=== PATIENT | female | born 2000 | race Caucasian/White ===

== ENCOUNTER 2020-03-02 13:05 | Outpatient (CLI) | payer OTHER ==
[2020-03-02] MEDS ORDERED: GADOBUTROL 7.5 MMOL/7.5 ML VIAL ONE (13:32)
[2020-03-02] MEDS ORDERED: BUFFERED LIDOCAINE 10 ML SYRINGE ONE (13:32)
[2020-03-02] MEDS: GADOBUTROL 7.5 MMOL/7.5 ML VIAL IVP ONE (14:20)
[2020-03-02] MEDS: iohexoL-240 10 ML VIAL IVP ONE (14:21)
[2020-03-02] MEDS: BUFFERED LIDOCAINE 10 ML SYRINGE IU ONE (14:21)
--- NOTE | 2020-03-02 15:25 | XRAY Report ---
PROCEDURE: Arthrogram Needle Placement INDICATIONS: Right shoulder pain TECHNIQUE: Informed consent was obtained. The right anterior shoulder was prepped and draped in usual sterile fa shion. Local anesthesia was achieved with 1% lidocaine. Subsequently, access was achieved to the righ t glenohumeral joint joint using a 3.5 inch 20-gauge spinal needle. A mixture normal saline, iodinate d contrast, and gadolinium this was instilled into the joint under direct fluoroscopic guidance. Spot films were then obtained, unremarkable. FINDINGS: Initial fluoroscopy demonstrated successful access to the right glenohumeral joint. Subsequent fluoro scopic and overhead films demonstrate intra-articular contrast dispersion. IMPRESSION: Technically successful right glenohumeral joint arthrogram for MRI. Reviewed by: Goyo Zee MD on 03/02/2020 3:23 PM PDT Approved by: Goyo Zee MD on 03/02/2020 3:23 PM PDT Station ID: [id number]
--- NOTE | 2020-03-02 16:07 | MRI Report ---
PROCEDURE: Arthrogram Shoulder RT INDICATIONS: RT SHLDR PAIN CONTRAST: 12 mL of dilute intra-articular Gadolinium contrast solution TECHNIQUE: After the administration of 12 mL of dilute intra-articular Gadolinium contrast, oblique coronal T1 a nd T2 spin echo with fat saturation, oblique sagittal T1 spin echo with and without fat saturation, o blique sagittal T2 fast spin echo with fat saturation, axial T1 spin echo with fat saturation through the shoulder. COMPARISON: Fluoroscopic images from arthrogram injection performed earlier the same day. FINDINGS: Image quality: Excellent. Rotator cuff: There is mild supraspinatus tendinosis. Infraspinatus and teres minor tendons are inta ct. The subscapularis tendon is grossly intact. There is no significant rotator cuff muscle atrophy. Bones and bursae: Increased signal intensity is seen within the medial humeral head and the glenoid that is suspicious for osteitis. There is full-thickness cartilage loss in the glenohumeral joint. No significant acromioclavicular joint degenerative changes are seen. Capsule and soft tissues: The labrum appears diminutive without a focal tear. There is mild tendinos is of the intra-articular portion of the biceps long head tendon. There is diffuse severe synovial hy pertrophy throughout the glenohumeral joint. Axillary lymph nodes are significantly increased in numb er and measure up to 11 mm in short axis diameter. IMPRESSION: 1. Marked synovial hypertrophy is seen in the glenohumeral joint with edema or osteitis in the adjac ent portions of the humeral head and glenoid. There is full-thickness cartilage loss in the glenohume ral joint. Axillary lymph nodes are significantly increased in size and number. Findings are suspicio us for an inflammatory arthritis such as rheumatoid arthritis versus a chronic indolent infection. Cl inical correlation is recommended. If there is any suspicion for an acute bacterial infection, urgent joint aspiration should be performed. 2. Mild supraspinatus tendinosis. 3. Mild tendinosis of the biceps long head tendon. Reviewed by: Beltran Lane MD on 03/02/2020 4:06 PM PDT Approved by: Beltran Lane MD on 03/02/2020 4:06 PM PDT Station ID: [id number]
--- NOTE | 2020-03-02 16:13 | MRI Report ---
PROCEDURE: Elbow RT W/O INDICATIONS: PAIN IN RT ELBOW TECHNIQUE: Noncontrast coronal proton density fast spin echo and T2 fast spin echo with fat saturation, axial an d sagittal T1 spin echo and T2 fast spin echo with fat saturation through the elbow. COMPARISON: None. FINDINGS: Image quality: Excellent. Lateral structures: The lateral ulnar collateral ligament and radial collateral ligament both appear intact. The overlying common extensor tendon demonstrate mild tendinosis. Medial structures: The ulnar collateral ligament appears intact. The overlying common flexor tendon appears normal. The ulnar nerve appears normal in size and signal within the cubital tunnel. Anterior structures: The biceps and brachialis tendons both appear intact as they insert onto the pr oximal radius and ulna, respectively. No bicipitoradial bursal fluid. The median and radial neurova scular bundles appear normal; no focal muscle atrophy to suggest nerve impingement. Posterior structures: The triceps tendon appears intact. No olecranon bursal fluid. Bone and cartilage: Edema or osteitis is seen in the distal humerus and the proximal ulna and radius adjacent to the elbow joint. There is high-grade and likely full-thickness cartilage loss in the radi ocapitellar and ulnotrochlear joints. A large joint effusion is seen with marked synovial hypertrophy . IMPRESSION: 1. Marked synovial hypertrophy is seen throughout the elbow with edema/osteitis of the adjacent osse ous structures. There is high-grade and likely full-thickness cartilage loss in the elbow joint. A mi ldly enlarged epitrochlear lymph node is seen. Findings are suspicious for an inflammatory arthritis such as rheumatoid arthritis. Chronic indolent infection such as tuberculosis or coccidiomycosis is l ess likely in the setting of multiple joint involvement. Correlation with clinical findings and serol ogies is recommended. 2. Mild common extensor tendinosis. Reviewed by: Beltran Lane MD on 03/02/2020 4:11 PM PDT Approved by: Beltran Lane MD on 03/02/2020 4:11 PM PDT Station ID: [id number]
== END 2020-03-02 13:06 | disposition home or self-care (01) ==
LOC: DI 13:05
DX: M67.211 Synovial hypertrophy, not elsewhere classified, right shoulder (principal); M94.211 Chondromalacia, right shoulder; R59.0 Localized enlarged lymph nodes; M75.81 Other shoulder lesions, right shoulder; M67.2 Synovial hypertrophy, not elsewhere classified; M94.221 Chondromalacia, right elbow; M67.921 Unspecified disorder of synovium and tendon, right upper arm
CPT/HCPCS: 23350; 73218; 73222; 77002; A9585; Q9966